=== PATIENT | female | born 1960 | race Two or more races ===

== ENCOUNTER 2022-01-21 21:19 | Emergency (ER) | payer OTHER ==
[~2022-01-21] VITALS: Ht 167.6 cm; Wt 78.5 kg
[2022-01-21 21:30] VITALS: BP 146/98
[2022-01-22] MEDS ORDERED: TETRACAINE 0.5% OPHTH DROPS 4ML LEFTEYE ONE
[2022-01-22] MEDS ORDERED: FLUORESCEIN SODIUM 1MG/STRIP LEFTEYE ONE
== END 2022-01-22 06:50 | disposition home or self-care (01) ==
LOC: ER 21:19
DX: H54.7 Unspecified visual loss (principal); E78.00 Pure hypercholesterolemia, unspecified; I10 Essential (primary) hypertension
CPT/HCPCS: 70481; 81025; 99285